=== PATIENT | female | born 1965 | race Caucasian/White ===

== ENCOUNTER 2016-08-02 18:37 | Emergency (ER) | payer OTHER ==
[~2016-08-02 18:37] MED LIST: MECL-114 PO
--- NOTE | 2016-08-02 18:43 | ED.REPORT ---
HPI-General Illness Date of Service August 02, 2016 ED Provider: Adan Langley MD The patient is a 51 year old female with history of alcohol abuse, was brought to the emergency department by EMS. Medics were called by security after they saw a female fall in the middle of the street on pavement. The patient was walking, stopped, began to stumble, and fell backwards. Her backpack hit the ground first and then her head hit and bounced off. Security later found the patient in a bathroom stall. She appeared to be intoxicated and was unwilling to come out or answer any questions. She became very agitated. Medics had a very difficulty time getting the patient out of the stall as well. They couldn' t get any history because she was agitated. Medics were not able to visualize any trauma to her head. The patient is unable to provide any history at this time. Nursing Notes Stated Complaint: GLF,INTOXICATED Nursing Notes Reviewed: Yes Allergies: Coded Allergies: Penicillins (Verified Allergy, Mild, 08/01/15) Scheduled PRN Meclizine (Bonine) 25 Mg Tab.chew 25 MG PO TID PRN PRN vertigo General Time Seen by MD: 18:42 Chief Complaint Other (ground level fall, head injury) Hx Obtained From: EMS, Police Unable to Obtain Hx: Patient condition, Intoxicated Arrived By: Ambulance Sudden in Onset?: Yes Onset Occurred: Just prior to arrival Symptom Duration: Since onset Location: : Head Quality: Painful Severity: Current: Severe Severity: Maximum: Moderate Recent Healthcare: No recent hospitalization Past Medical History Past Medical History alcohol abuse Past Surgical History none reported Family History Noncontributory Smoking History Smoker Current Status UNK Social History Alcohol Use: >5 per day Drug Use: Denies drug use Other Social History: Local resident Ambulatory Status Independent Review of Systems Unable to Obtain ROS Patient condition, Intoxicated Full Review of Systems Psychiatric: Reports: Agitation Physical Exam Vital Signs Vital Signs Date Time Temp Pulse Resp B/P Pulse Ox O2 Delivery O2 Flow Rate FiO2 08/02/16 19:01 36.4 125 18 137/73 98 Initial VS: Reviewed Skin: Warm, Dry, No cyanosis Alertness: Positive: Sedated Head / Eyes: Atraumatic, Normocephalic, PERRL, EOMI Pupils are 3 mm and reactive ENT: Atraumatic, Airway patent, Mucous membranes moist Neck: Atraumatic, Full range of motion, No midline vertebral tend Respiratory / Chest: Atraumatic, Breath sounds NL, No respiratory distress, No rales, No rhonchi, No wheezing Cardiovascular: Heart rate NL, Regular rhythm, Heart sounds NL, Cap refill not delayed, Peripheral circulation NL Abdomen: Atraumatic, Soft, Non-tender, No guarding, No rebound Upper Extremities Upper Extremity / MS: Atraumatic, Inspection NL, No deformity, Neurologic intact, Vascular intact Lower Extremity / Pelvis / MS: Atraumatic, Inspection NL, No deformity, Neurologic intact, Vascular intact Mental Status: Positive: Pharmacologically sedated Interpretation & Diagnostics Lab Results Interpretation Result Diagram: 08/02/16 2108 08/02/16 2108 Test 08/02/16 21:08 08/02/16 21:18 White Blood Count 5.0th/mm3 (3.8-10.1) Red Blood Count 4.67mil/mm3 (3.90-5.20) Hemoglobin 14.9g/dL (12.0-15.6) Hematocrit 43.0% (35.0-46.0) Mean Corpuscular Volume 92.1fL (81-100) Mean Corpuscular Hemoglobin 31.9pg (27.0-35.0) Mean Corpuscular Hemoglobin Concent 34.7% (32.0-37.0) Red Cell Distribution Width 14.5% (12.3-15.4) Platelet Count 184bil/L (150-400) Neutrophils (%) (Auto) 46.7% (40-74) Lymphocytes (%) (Auto) 45.5% (14-46) Monocytes (%) (Auto) 6.6% (4-12) Eosinophils (%) (Auto) 0.8% (0-5) Basophils (%) (Auto) 0.4% (0-3) Sodium Level 143mEq/L (134-144) Potassium Level 3.9mEq/L (3.5-5.2) Chloride Level 101mEq/L (97-108) Carbon Dioxide Level 21mmol/L (18-29) Blood Urea Nitrogen 7mg/dL (6-24) Creatinine 0.66mg/dL (0.57-1.00) Estimat Glomerular Filtration Rate 135mL/min (>59) Glucose Level 89mg/dL (60-99) Lactic Acid Level 2.9mmol/L (0.4-2.0) Calcium Level 9.1mg/dL (8.5-10.1) Magnesium Level 1.8mg/dL (1.6-2.6) Total Bilirubin 0.4mg/dL (0.0-1.2) Aspartate Amino Transf (AST/SGOT) 35U/L (0-50) Alanine Aminotransferase (ALT/SGPT) 46U/L (0-32) Alkaline Phosphatase 79U/L (25-150) Total Protein 7.4g/dL (6.4-8.4) Albumin 4.6g/dL (3.4-5.0) Salicylates Level 3.0ug/mL (30-250) Acetaminophen Level 15.0ug/mL Rx (10-25) Alcohols 290mg/dL (0-10) Urine Color Yellow (YELLOW) Urine Appearance Clear (CLEAR,HAZY) Urine pH 5.0 (5.0-8.0) Urine Specific Ware 1.005 (1.003-1.035) Urine Protein Negativemg/dL (NEG,TRACE) Urine Glucose (UA) Negativemg/dL (NEGATIVE) Urine Ketones Negativemg/dL (NEGATIVE) Urine Occult Blood Negative (NEGATIVE) Urine Nitrite Negative (NEGATIVE) Urine Bilirubin Negative (NEGATIVE) Urine Urobilinogen Normalmg/dL (NORMAL) Urine Leukocyte Esterase Negative (NEGATIVE) Urine RBC 0-2/hpf (0-2) Urine WBC 0-5/hpf (0-5) Urine Epithelial Cells Few/hpf (NONE-MOD) Urine Crystals None seen (NONE SEEN) Urine Bacteria Few/hpf (NONE-FEW) Urine Hyaline Casts None/lpf (NONE) Urine Granular Casts None seen (NONE SEEN) Urine Waxy Casts None seen (NONE SEEN) Urine Red Blood Cell Casts None seen (NONE SEEN) Urine White Blood Cell Casts None seen (NONE SEEN) Urine Mucus None seen (None Seen) Urine Trichomonas None seen (NONE SEEN) Urine Yeast None (NONE SEEN) Urinalysis Comment None Urine Culture Reflexed Not indicated ECG Interpretation ECG Interpretation: Sinus tachycardia with a rate of 102 bpm Frequent PVCs Normal axis Normal intervals No ST segment elevation No acute T wave abnormalities Poor baseline quality No prior available for comparison Time: 20:38 Interpreted by: ED physician X-Ray Chest Interpretation Chest Xray Interpretation: IMPRESSION: No acute cardiopulmonary disease. Dictated by: Jacob Sheikh M.D. on 08/02/2016 at 20:57 Interpretation / Wet Read by: Interpret - Radiologist CT Head Interpretation IMPRESSION: No acute intracranial abnormalities. Dictated by: Jacob Sheikh M.D. on 08/02/2016 at 20:59 Study: Head CT no contrast Interpretation / Wet Read by: Interpret - Radiologist CT C-Spine Interpretation IMPRESSION: No acute bony injuries of the cervical and upper thoracic spine from the foramen magnum to the T5 level. Mid and lower cervical spine disc degeneration. Dictated by: Jacob Sheikh M.D. on 08/02/2016 at 21:00 Study type: CT no contrast Interpretation / Wet Read by: Interpret - Radiologist Procedures Proced Mod Sedation/Analgesia Time: 20:35 Procedure Performed by: ED physician Consent / Setup: No consent - emergent, Time-out performed, Hand hygiene observed Indication: Other (agitation) Preparation: shrimp packer applied, Pulse oximeter applied, Constant attendance, IV access established, Eval last meal time, Supplemental oxygen, Procedure explained, Suction available, End tidal CO2 mon applied VS Prior to Procedure: All vital signs normal Airway Exam: Normal anatomy CVS/Resp Exam: Normal breath sounds, Normal heart sounds Neuro Exam: Alert Sedation: Sedation: Ketamine (150 mg IM) Response During Procedure: Handled secretions adeq, Maintained airway well, Oxygenation stable, Sedation appropriate, Vital signs stable Complications During/After: None Reversal: None required Mental Status After Procedure: Alert, At patient's baseline Post-Procedure: Alert prior to discharge, Ambulatory with assist, Pt rtn pre- proc baseline, Vital signs normal Attestation: I performed sedation Re-Eval/Medical Decision Med Decision/Clinical Course The patient is a 51 year old female with history of alcohol abuse, was brought to the emergency department by EMS. Medics were called by security after they saw a female fall in the middle of the street on pavement. The patient was walking, stopped, began to stumble, and fell backwards. Her backpack hit the ground first and then her head hit and bounced off. Security later found the patient in a bathroom stall. She appeared to be intoxicated and was unwilling to come out or answer any questions. She became very agitated. Medics had a very difficulty time getting the patient out of the stall as well. They couldn' t get any history because she was agitated. Medics were not able to visualize any trauma to her head. Upon arrival she is in 4 point restraints, agitated and unable to provide any history. The patient was given 5 mg of intramuscular Haldol Haldol, Benadryl, and Ativan as she remained quite agitated. Due to significant concern about head trauma in the setting of her obvious intoxication I felt the need to expedite workup including CT scan. Given that she was agitated and unable to stay still I opted to proceed with ketamine sedation in order to facilitate imaging studies. LABS: CBC unremarkable, CMP unremarkable, lactic acid 2.9,EtOH 290,Tylenol and salicylates negative, UA unremarkable, Urine drug screen negative, Urine negative A G was obtained and interpreted by myself as documented above. CXR: Obtained, reviewed and interpreted by myself shows no evidence of infiltrates, effusions or pneumothorax. Cardiac and mediastinal silhouette normal. No bony or soft tissue abnormalities. Head CT demonstrated no acute intracranial process. C-spine CT negative Patient remained intoxicated though I was able to remove restraints. The patient was signed out to the oncoming physician with plan for sober reassessment. She remained stable and in no apparent distress. Source of Hx: Old records, EMS Time of Eval: 21:27 Re-Evaluation/Progress Note: Rechecked the patient. Counseled Regarding: Diagnosis, Lab results Discharge & Departure Shift Change Sign-Out Patient Care Transferred: Yes Discussed Complaint(s): Yes Laboratory Evaluation: Lab evaluation discussed Imaging Studies: Imaging discussed Response to Therapy: Discussed Primary Impression: Agitation Additional Impressions: Alcohol use Head trauma Encounter type: initial encounter Qualified Code: S09.90XA - Unspecified injury of head, initial encounter Altered mental status Altered mental status type: unspecified Qualified Code: R41.82 - Altered mental status, unspecified Discharge Condition All VS Reviewed: Yes Condition: Stable Referrals: NOPCP (PCP) Care Transferred to: Dr. Solano Care Transferred at: 00:01 Crit Care Except Billable Proc Time Spent: 105-134 minutes Services Performed: Patient management by me, Time spent at bedside, Reviewing test results, Reviewing imaging, Discussing patient care, Documentation in record, Time with fam/surrogate Scribe Attestation Portions of this note were transcribed by Silvia Costa. I, Dr. Langley personally performed the history, physical exam and medical decision-making; I reviewed and confirmed the accuracy of the information in the transcribed note. Signed by: Chucho Evans 08/02/2016 at 0001. Adan Langley MD August 02, 2016 18:43 Silvia Costa August 02, 2016 18:50
[2016-08-02] MEDS ORDERED: Haloperidol 5 mg/mL Inj IM PRN (18:45)
[2016-08-02] MEDS ORDERED: 0.9% Sodium Chloride 1,000 ML IV ONE (18:45)
[2016-08-02 19:01] VITALS: BP 137/73; PULSE 125; RESP 18; O2SAT 98
[2016-08-02] MEDS ORDERED: Ketamine 100 mg/mL 5 mL Inj IM ONE (20:25)
[2016-08-02 20:50] VITALS: BP 148/89; PULSE 102; RESP 14; O2SAT 96
--- NOTE | 2016-08-02 20:59 | DRSVH ---
PROCEDURE: X-RAY CHEST ONE VIEW, PORTABLE ([id number]) INDICATIONS: 51 year-old female with altered mental status. TECHNIQUE: One view of the chest was acquired. COMPARISON: None. FINDINGS: Surgical changes and devices: None. Lungs and pleura: No pleural effusions or pneumothorax. Lungs are clear. Mediastinum: Mediastinal contours appear normal. Heart size is normal. Bones and chest wall: No suspicious bony lesions. Overlying soft tissues appear unremarkable. IMPRESSION: No acute cardiopulmonary disease. Dictated by: Jacob Sheikh M.D. on 08/02/2016 at 20:57 Approved by: Jacob Sheikh M.D. on 08/02/2016 at 20:58
--- NOTE | 2016-08-02 21:01 | DRSVH ---
PROCEDURE: CT BRAIN WITHOUT CONTRAST ([id number]) INDICATIONS: 51 year-old female with altered mental status after head trauma. TECHNIQUE: Noncontrast 4.5 mm thick angled axial sections acquired from the foramen magnum to the vertex, with c oronal reformats. COMPARISON: [facility], CT, CT BRAIN WO CON, 08/01/2015, 22:27. FINDINGS: Image quality: Excellent. CSF spaces: Basal cisterns are patent. No extra-axial fluid collections. Ventricles are normal in size and shape. Brain: No midline shift. No intracranial masses or hemorrhage. Trimble-white matter interface is norm al. Skull and face: Calvarium and visualized facial bones are intact, without suspicious lesions. Sinuses: Visualized sinuses and mastoids are clear. IMPRESSION: No acute intracranial abnormalities. Dictated by: Jacob Sheikh M.D. on 08/02/2016 at 20:59 Approved by: Jacob Sheikh M.D. on 08/02/2016 at 21:00
--- NOTE | 2016-08-02 21:06 | DRSVH ---
PROCEDURE: CT CERVICAL SPINE WITHOUT CONTRAST ([id number]) INDICATIONS: 51 year-old female status post fall while intoxicated. TECHNIQUE: Noncontrast 3 mm thick sections acquired from the skull base to the T5 level. Sagittal and coronal r eformats were then constructed. For radiation dose reduction, the following was used: automated exp osure control, adjustment of mA and/or kV according to patient size. COMPARISON: None. FINDINGS: Image quality: Excellent. Bones: No fractures or dislocations. There is C4-C5 and C5-C6 disc degeneration. Visualized superio r ribs are intact. Soft tissues: Prevertebral soft tissues are normal in thickness. No paravertebral hematomas. No ap ical pneumothoraces. IMPRESSION: No acute bony injuries of the cervical and upper thoracic spine from the foramen magnum t o the T5 level. Mid and lower cervical spine disc degeneration. Dictated by: Jacob Sheikh M.D. on 08/02/2016 at 21:00 Approved by: Jacob Sheikh M.D. on 08/02/2016 at 21:05
[2016-08-02 21:17] LABS: BASOPHILS % (AUTO) 0.4 % (0-3); EOSINOPHILS % (AUTO) 0.8 % (0-5); MONOCYTES % (AUTO) 6.6 % (4-12); Mean Corpuscular Hemoglobin 31.9 pg (27.0-35.0); Mean Corpuscular Volume 92.1 fL (81-100); NEUTROPHILS % (AUTO) 46.7 % (40-74); Platelet Count 184 bil/L (150-400)
[2016-08-02 21:30] VITALS: BP 145/90; PULSE 96; RESP 18; O2SAT 95
[2016-08-02 21:37] LABS: APPEARANCE,URINE CLEAR (CLEAR,HAZY); COLOR,URINE YELLOW (YELLOW); OCCULT BLOOD,URINE NEGATIVE (NEGATIVE); UROBILINOGEN,URINE NORMAL (NORMAL)
[2016-08-02 21:44] LABS: Magnesium 1.8 mg/dL (1.6-2.6)
[2016-08-02 23:00] VITALS: BP 104/63; PULSE 74; RESP 18; O2SAT 97
[2016-08-03] MEDS: 0.9% Sodium Chloride 1,000 ML IV SCH ×2 (00:16→05:15)
[2016-08-03 00:17] VITALS: BP 118/72; PULSE 99; RESP 19; O2SAT 94
[2016-08-03 03:54] VITALS: BP 112/79; PULSE 94; RESP 18; O2SAT 96
[2016-08-03 06:02] VITALS: BP 142/78; PULSE 80; RESP 24; O2SAT 100
== END 2016-08-03 06:05 | disposition home or self-care (01) ==
LOC: SED 18:37
DX: S09.8XXA Other specified injuries of head, initial encounter (principal); R41.82 Altered mental status, unspecified; W22.8XXA Striking against or struck by other objects, initial encounter; Y93.01 Activity, walking, marching and hiking; Y92.480 Sidewalk as the place of occurrence of the external cause; Y99.8 Other external cause status; R45.1 Restlessness and agitation; F10.129 Alcohol abuse with intoxication, unspecified; Z88.0 Allergy status to penicillin
CPT/HCPCS: 70450; 71010; 72125; 80053; 81000; 81025; 83605; 83735; 85025; 93005; 96372; 99291; 99292; G0480; J1200; J1630; J2060; J7030